=== PATIENT | female | born 1995 | race Caucasian/White ===

== ENCOUNTER 2024-12-15 15:17 | Emergency (ER) | payer SELFPAY ==
[2024-12-15 15:58] VITALS: BP 134/89; PULSE 102; RESP 16; TEMP 36.6; O2SAT 100
[2024-12-15 16:00] LABS: BEDSIDEPREGUCG Negative (Negative)
[2024-12-15 16:00] LABS: Hematocrit 43.6 % (37.0-47.0); Hemoglobin 13.4 g/dL (12.0-15.0); Immature Granulocyte Percent A 0.3 % (0-0.5); Lymphocytes Absolute Auto 2.13 K/mm3 (0.9-3.2); Mean Corpuscular HGB Conc 30.7 g/dl (32-36); Mean Corpuscular Hemoglobin 24.5 pg (26-34); Mean Corpuscular Volume 79.6 fl (80-100); Nucleated Red Blood Cells Absolute Auto 0.000 K/mm3 (0.0-0.012); Nucleated Red Blood Cells Perc 0.0 % (0.0-0.2); Platelet Count Result 328 k/mm3 (150-375); Red Blood Count 5.48 M/mm3 (4.2-5.4); White Blood Count 6.5 K/mm3 (4.5-10.0)
[2024-12-15 16:02] LABS: Add Urine Microscopic? YES; Appearance Urine Cloudy (Clear); Glucose Urine UA Negative (Negative); Leukocyte Esterase Ur Trace LEU/UL (Negative); Nitrate Urine Negative (Negative); Non Pathogenic Casts 0-2; Specific Grav Ur 1.018 (1.001-1.035)
[2024-12-15 16:08] LABS: Acetaminophen < 10 ug/mL (10-30); Salicylate < 1.0 mg/dL (2-20)
[2024-12-15 16:09] LABS: Alanine Aminotransferase 32 U/L (6-35); Albumin Level 4.9 g/dL (3.5-5.1); Alkaline Phosphatase 47 U/L (38-126); Anion Gap 10 mmol/L (4-12); Aspartate Amino Transferase 36 U/L (14-36); Bilirubin,Total 0.5 mg/dL (0.2-1.3); Blood Urea Nitrogen 8 mg/dL (7-17); Calcium 9.4 mg/dL (8.4-10.2); Carbon Dioxide 24 mmol/L (22-30); Chloride 106 mmol/L (98-107); Estimated Glomerular Filt Rate > 60; Glucose 79 mg/dL (65-110); Potassium 4.1 mmol/L (3.4-5.0); Sodium 140 mmol/L (137-145); Total Protein 7.9 g/dL (6.3-8.2)
[2024-12-15 16:25] LABS: Cannabinoid Screen Urine Negative (Negative)
[2024-12-15 16:34] LABS: Influenza A QL RT-PCR Negative (Negative); Influenza B QL RT-PCR Negative (Negative); RSV RNA, RT-PCR Negative (Negative); SARS-CoV-2 RNA PCR Negative (Negative)
--- NOTE | 2024-12-15 16:56 | ED.GENADULT ---
HPI - General Adult General Chief complaint: Psychiatric Symptoms Stated complaint: stressed, not suicidal Time Seen by Provider: 12/15/24 16:21 History of Present Illness HPI narrative: 29-year-old female presenting to the emergency department for evaluation for depression. Patient reports she has had worsening depression over the course of the last 2 years since giving childbirth. Patient reports she does not have follow-up with primary care physician. Patient states she has not spoken to a counselor or psychiatrist about this depression. Patient states she does have intermittent thoughts of self-harm and does have intermittent desire to act on these thoughts of self-harm. Patient states she did have these thoughts today. Patient denies having a plan. Review of Systems Review of Systems: All systems reviewed & are unremarkable except as noted in HPI and below PMFSH Social History Social History Substance use type: does not use Exam Narrative: APPEARANCE: Well appearing, no pain, no distress, well-nourished. HEAD: normocephalic, atraumatic. EYES: PERRLA/EOMI, conjunctivae clear. NOSE: Normal no drainage EARS:TMS clear with good light reflex. THROAT: Pharynx clear, no exudate. NECK: Supple. No adenopathy, no masses. RESPIRATORY: Airway patent, respirations nonlabored. Clear to auscultation bilaterally, no rales, rhonchi, wheezing. CARDIOVASCULAR: Regular rate and rhythm without murmurs rubs or gallops. ABDOMINAL: Soft, nontender, nondistended, normal bowel sounds MUSCULOSKELETAL: Moves all extremities. Strength/ROM intact, No edema, No calf tenderness. NEURO: Alert. Cranial nerves II through XII intact. Good gait. Good coordination SKIN: Warm, dry. Normal Color PSYCHIATRIC: Tearful flat affect Course Vital Signs Vital signs: Vital Signs Temperature 97.9 F 12/15/24 15:58 Pulse Rate 102 H 12/15/24 15:58 Respiratory Rate 16 12/15/24 15:58 Blood Pressure 134/89 12/15/24 15:58 Pulse Oximetry 100 12/15/24 15:58 Oxygen Delivery Room Air 12/15/24 15:58 Temperature 97.9 F 12/15/24 15:58 Pulse Rate 102 H 12/15/24 15:58 Respiratory Rate 16 12/15/24 15:58 Blood Pressure 134/89 12/15/24 15:58 Pulse Oximetry 100 12/15/24 15:58 Oxygen Delivery Room Air 12/15/24 15:58 Medical Decision Making MDM Narrative Medical decision making narrative: 29-year-old female presents to the emergency department for evaluation for suicidal ideation. Patient is currently afebrile with no leukocytosis and hemoglobin of 13.4. Patient has no acute abnormalities on her CMP urine was negative for infection slow fluids were negative acetaminophen was negative and alcohol was negative patient was negative for influenza RSV and for COVID. Patient is medically cleared to be evaluated by crisis control. Patient is medically cleared for transport and inpatient psychiatric hospitalization as needed. Patient was evaluated by the crisis counselor and patient did sign a safety agreement prefers to be discharged does go home. Patient will have follow-up with a counselor on Wednesday. Differential Diagnosis Differential Diagnosis: Suicidal ideation, depression, hypothyroid Vital Signs Vital Signs: Vital Signs Temperature 97.9 F 12/15/24 15:58 Pulse Rate 102 H 12/15/24 15:58 Respiratory Rate 16 12/15/24 15:58 Blood Pressure 134/89 12/15/24 15:58 Pulse Oximetry 100 12/15/24 15:58 Oxygen Delivery Room Air 12/15/24 15:58 Temperature 97.9 F 12/15/24 15:58 Pulse Rate 102 H 12/15/24 15:58 Respiratory Rate 16 12/15/24 15:58 Blood Pressure 134/89 12/15/24 15:58 Pulse Oximetry 100 12/15/24 15:58 Oxygen Delivery Room Air 12/15/24 15:58 Lab Data Lab results reviewed: Yes I reviewed the patient's lab results. 12/15/24 15:45 12/15/24 15:45 Labs: Lab Results 12/15/24 12/15/24 12/15/24 Range/Units 15:45 15:45 15:58 WBC 6.5 (4.5-10.0) K/mm3 RBC 5.48 H (4.2-5.4) M/mm3 Hgb 13.4 (12.0-15.0) g/dL Hct 43.6 (37.0-47.0) % MCV 79.6 L (80-100) fl MCH 24.5 L (26-34) pg MCHC 30.7 L (32-36) g/dl RDW 14.1 (11.5-14.5) % Plt Count 328 (150-375) k/mm3 MPV 8.7 (7.4-10.4) fl Immature Gran % (Auto) 0.3 (0-0.5) % Neut % (Auto) 60.3 (45.5-73.1) % Lymph % (Auto) 33.0 (18.3-44.2) % [place] % (Auto) 4.5 (2.6-8.5) % Eos % (Auto) 1.1 (0-4.4) % Baso % (Auto) 0.8 (0.2-1.2) % Lymph # (Auto) 2.13 (0.9-3.2) K/mm3 [place] # (Auto) 0.3 (0.1-0.6) K/mm3 Eos # (Auto) 0.1 (0-0.3) K/mm3 Baso # (Auto) 0.1 (0.0-0.1) K/mm3 Abs Immat Gran (auto) 0.02 (0.00-0.031) K/mm3 Absolute Neuts (auto) 3.9 (1.3-6.7) K/mm3 Absolute Nucleated RBC 0.000 (0.0-0.012) K/mm3 Nucleated RBC % 0.0 (0.0-0.2) % Sodium 140 (137-145) mmol/L Potassium 4.1 (3.4-5.0) mmol/L Chloride 106 (98-107) mmol/L Carbon Dioxide 24 (22-30) mmol/L Anion Gap 10 (4-12) mmol/L BUN 8 (7-17) mg/dL Creatinine 0.93 (0.7-1.0) mg/dL Estim Creat Clear Calc Not Reportable Estimated GFR > 60 (59 - ) Glucose 79 (65-110) mg/dL Calcium 9.4 (8.4-10.2) mg/dL Total Bilirubin 0.5 (0.2-1.3) mg/dL AST 36 (14-36) U/L ALT 32 (6-35) U/L Alkaline Phosphatase 47 (38-126) U/L Total Protein 7.9 (6.3-8.2) g/dL Albumin 4.9 (3.5-5.1) g/dL TSH (Reflex) 1.360 (0.465-4.68) uIU/mL Urine Color Yellow (Yellow) Urine Appearance Cloudy H (Clear) Urine pH 6.0 (5.0-9.0) Ur Specific [place] 1.018 (1.001-1.035) Urine Protein Negative (Negative) mg/dL Urine Glucose (UA) Negative (Negative) mg/dL Urine Ketones 2+ H (Negative) mg/dL Ur Blood (Man) Negative (Negative) Urine Nitrate Negative (Negative) Urine Bilirubin Negative (Negative) Urine Urobilinogen 0.2 (<2.0) mg/dL Leukocyte Esterase Rfl Trace H (Negative) SHANNON/UL Urine RBC 0-2 (0-2) /hpf Urine WBC 0-5 (0-3) /hpf Ur Squamous Epith Cells Occasional (Few) /hpf Urine Bacteria Rare /hpf Urine Casts 0-2 POC Urine HCG, Qual Negative (Negative) Salicylates < 1.0 L Cancelled (2-20) mg/dL Urine Opiates Screen Negative (Negative) Urine Methadone Screen Negative (Negative) Acetaminophen < 10 L (10-30) ug/mL Ur Barbiturates Screen Negative (Negative) Ur Phencyclidine Scrn Negative (Negative) Ur Amphetamine Screen Negative (Negative) U Benzodiazepines Scrn Negative (Negative) Urine Cocaine Screen Negative (Negative) U Cannabinoids Screen Negative (Negative) Ethyl Alcohol < 10 (<10) mg/dL Influenza A (RT-PCR) Negative (Negative) Influenza B (RT-PCR) Negative (Negative) RSV (RT-PCR) Negative (Negative) SARS-CoV-2 RNA (RT-PCR) Negative (Negative) Discharge Plan Discharge Clinical Impression: Depression Patient Disposition: Home Condition: Stable Instructions: Antibiotic Form, Depression (ED) Additional Instructions: Have close follow-up with your counselor on Wednesday. If you do not feel safe at home or if you are having any worsening symptoms then please call or return to the emergency department. Patient Language: Citizen Of [place] Follow-up/Referrals: PHYSICIAN,[employer] OPERATOR [Primary Care Provider, Internal Medicine]
[2024-12-15 17:54] LABS: Thyroid Stimulating Hormone Reflex 1.360 uIU/mL (0.465-4.68)
== END 2024-12-15 19:12 | disposition home or self-care (01) ==
PROVIDERS: Emergency Medicine; Emergency Provider Emergency Medicine
DX: F32.A Depression, unspecified (principal); Z11.52 Encounter for screening for COVID-19
CPT/HCPCS: 36415; 80053; 80143; 80179; 80307; 81001; 81025; 82077; 84443; 85025; 87637; 99283